=== PATIENT | female | born 1945 | race Caucasian/White ===

== ENCOUNTER 2018-04-30 20:10 | Inpatient (IN) | payer MEDICARE ==
[~2018-04-30] VITALS: Ht 165.1 cm; Wt 81.6 kg
[2018-04-30] MEDS ORDERED: KETOROLAC 30MG/ML VIAL IV STA (20:35)
[2018-04-30 21:32] LABS: CHLORIDE 93 mEq/L (98-107)
[2018-04-30 21:37] LABS: BASOPHILS % 0.6 % (0.0-2.0); EOSINOPHILS % 1.7 % (0.0-5.0); HEMATOCRIT. 35.9 % (36.0-48.0); LYMPHOCYTES % 35.7 % (20.0-50.0); MEAN CORPUSCULAR HEMOGLOBIN 30.6 pg (28.0-32.0); MEAN CORPUSCULAR VOLUME 91.7 fL (81.0-99.0); MEAN PLATELET VOLUME 9.7 fl (7.4-10.4); MONOCYTES % 9.1 % (2.0-8.0); NEUTROPHILS % 52.9 % (40.0-76.0); PLATELET 191 x1000/uL (130-400); RED BLOOD CELL COUNT 3.92 mill/uL (4.2-5.4); RED CELL DISTRIBUTION WIDTH 13.2 % (11.6-14.6)
[2018-04-30] MEDS ORDERED: MORPHINE SULFATE 2 MG/ML CPJ (NOT FOR IM USE) IV ONE (21:45)
[2018-05-01 00:24] LABS: CLARITY URINE CLEAR (CLEAR); COLOR URINE YELLOW (YELLOW); KETONES URINE TRACE (NEGATIVE); LEUKOCYTE ESTERASE URINE NEGATIVE (NEGATIVE); NITRITE URINE NEGATIVE (NEGATIVE); OCCULT BLOOD URINE NEGATIVE (NEGATIVE); PH URINE 7.5 (4.5-8.0); PROTEIN URINE NEGATIVE (NEGATIVE); SPECIFIC GRAVITY URINE 1.015 (1.005-1.030); UROBILINOGEN URINE 0.2 E.U./dL (0.2-1.0)
[2018-05-01] MEDS ORDERED: ACETAMINOPHEN 325MG TABLET PO PRN ×2 (02:15→17:30)
[2018-05-01 02:25] VITALS: BP 121/70
[2018-05-01] MEDS ORDERED: ASPIRIN 81MG TABLET PO SCH (02:28)
[2018-05-01 04:00] VITALS: BP 121/53
[2018-05-01 08:00] VITALS: BP 127/62
[2018-05-01 08:08] LABS: LDL CHOLESTEROL 66 mg/dL (5-100)
[2018-05-01 08:10] LABS: CREATINE KINASE 133 IU/L (26-192); HDL CHOLESTEROL 48 mg/dL (40-59)
[2018-05-01 08:16] LABS: CREATINE KINASE MB FRACTION < 1.0 ng/mL (0.5-3.6)
[2018-05-01] MEDS: METOPROLOL TARTRATE 50MG TABLET PO SCH ×2 (09:12→20:44)
[2018-05-01] MEDS: ENOXAPARIN 40MG/0.4ML SYR SUBCUT SCH (09:14)
[2018-05-01] MEDS: HYDROCODONE/ACETAMINOPHEN 5/325MG TABLET PO PRN ×2 (09:20→19:54)
[2018-05-01 12:00] VITALS: BP 149/66
[2018-05-01 12:24] LABS: BASOPHILS % 1.2 % (0.0-2.0); EOSINOPHILS % 1.5 % (0.0-5.0); HEMATOCRIT. 34.5 % (36.0-48.0); HEMOGLOBIN. 11.5 g/dL (12.0-16.0); LYMPHOCYTES % 37.1 % (20.0-50.0); MEAN CORPUSCULAR HEMOGLOBIN 30.5 pg (28.0-32.0); MEAN PLATELET VOLUME 10.2 fl (7.4-10.4); MONOCYTES % 8.8 % (2.0-8.0); NEUTROPHILS % 51.4 % (40.0-76.0); PLATELET 187 x1000/uL (130-400); RED BLOOD CELL COUNT 3.76 mill/uL (4.2-5.4); RED CELL DISTRIBUTION WIDTH 13.4 % (11.6-14.6)
[2018-05-01 12:35] LABS: CHLORIDE 97 mEq/L (98-107)
[2018-05-01] MEDS ORDERED: REGADENOSON 0.4 MG/5 ML IV SCH (15:45)
[2018-05-01 16:00] VITALS: BP 140/55
[2018-05-01] MEDS ORDERED: ACETAMINOPHEN 650MG SUPP PR PRN (17:30)
[2018-05-01] MEDS ORDERED: MAGNESIUM/ALUMINUM HYDROXIDE/SIMETHICONE 30ML UDC PO PRN (17:30)
[2018-05-01] MEDS ORDERED: HYDRALAZINE 20MG/ML VIAL IV PRN (17:30)
[2018-05-01] MEDS ORDERED: DOCUSATE SODIUM 100MG CAPSULE PO PRN (17:30)
[2018-05-01 20:00] VITALS: BP 140/74
[2018-05-01] MEDS ORDERED: METF10004 PO (20:56)
[2018-05-01] MEDS ORDERED: DEXTROSE 50% WATER 50ML SYRINGE IV PRN (22:45)
[2018-05-01] MEDS: HYDROCODONE/APAP 7.5/325MG 1 TAB TABLET PO PRN (22:49)
[2018-05-02] VITALS: BP 134/72
[2018-05-02] MEDS ORDERED: DEXT 5%/0.45% NACL 1000ML 1,000 ML IV SCH
[2018-05-02 04:00] VITALS: BP 140/72
[2018-05-02] MEDS: BLOOD SUGAR DIAGNOSTIC STRIP TEST SCH ×3 (05:56→17:20)
[2018-05-02] MEDS: METFORMIN HCL 500MG TABLET PO SCH ×2 (06:19→17:18)
[2018-05-02 07:14] LABS: BASOPHILS % 0.8 % (0.0-2.0); EOSINOPHILS % 3.3 % (0.0-5.0); HEMATOCRIT. 37.3 % (36.0-48.0); HEMOGLOBIN. 12.6 g/dL (12.0-16.0); LYMPHOCYTES % 46.1 % (20.0-50.0); MEAN CORPUSCULAR HEMOGLOBIN 31.1 pg (28.0-32.0); MEAN CORPUSCULAR VOLUME 92.3 fL (81.0-99.0); MEAN PLATELET VOLUME 9.4 fl (7.4-10.4); MONOCYTES % 10.8 % (2.0-8.0); PLATELET 197 x1000/uL (130-400); RED BLOOD CELL COUNT 4.05 mill/uL (4.2-5.4); RED CELL DISTRIBUTION WIDTH 13.6 % (11.6-14.6)
[2018-05-02 07:40] LABS: CHLORIDE 99 mEq/L (98-107)
[2018-05-02 08:00] VITALS: BP 142/64
[2018-05-02] MEDS ORDERED: ASPIRIN 81MG TABLET PO SCH (09:00)
[2018-05-02] MEDS: ENOXAPARIN 40MG/0.4ML SYR SUBCUT SCH (09:06)
[2018-05-02] MEDS ORDERED: REGADENOSON 0.4 MG/5 ML IV ONE (11:24)
[2018-05-02 12:00] VITALS: BP 129/78
[2018-05-02] MEDS: METOPROLOL TARTRATE 50MG TABLET PO SCH (13:27)
[2018-05-02] MEDS: HYDROCODONE/APAP 7.5/325MG 1 TAB TABLET PO PRN (13:27)
[2018-05-02] MEDS ORDERED: ASPI-1158 MT (15:30)
[2018-05-02] MEDS ORDERED: GLYB5TAB7 MT (15:33)
[2018-05-02] MEDS ORDERED: METO-539 MT (15:36)
[2018-05-02 15:51] VITALS: BP 129/78
[2018-05-02 16:00] VITALS: BP 130/71
[2018-05-02] MEDS ORDERED: GLYBURIDE 5MG TABLET PO SCH (16:45)
== END 2018-05-02 18:50 | disposition home health service (06) | DRG 206 ==
LOC: ER 20:48 → 5WST 21:53 → EDBEDREQTM 21:56 → EDBEDREQ 21:56 → ENRESERV 22:16
PROVIDERS: ADMIT Internal Medicine; ATTEND Internal Medicine
DX: M94.0 Chondrocostal junction syndrome [Tietze] (principal); K86.1 Other chronic pancreatitis; K52.9 Noninfective gastroenteritis and colitis, unspecified; R07.89 Other chest pain; E87.6 Hypokalemia; E11.9 Type 2 diabetes mellitus without complications; E78.00 Pure hypercholesterolemia, unspecified; E66.9 Obesity, unspecified; R26.9 Unspecified abnormalities of gait and mobility; M48.061 Spinal stenosis, lumbar region without neurogenic claudication; M51.36 Other intervertebral disc degeneration, lumbar region; M25.551 Pain in right hip; K57.90 Diverticulosis of intestine, part unspecified, without perforation or abscess without bleeding; M54.5 Low back pain; E78.5 Hyperlipidemia, unspecified; I11.9 Hypertensive heart disease without heart failure; Z86.73 Personal history of transient ischemic attack (TIA), and cerebral infarction without residual deficits; Z79.82 Long term (current) use of aspirin; Z79.84 Long term (current) use of oral hypoglycemic drugs; Z68.30 Body mass index [BMI] 30.0-30.9, adult
CPT/HCPCS: 36415; 71045; 72148; 74176; 78452; 80048; 80053; 80061; 81003; 82550; 82553; 82962; 83036; 83690; 83880; 84443; 84484; 85025; 93005; 93017; 93306; 93970; 96374; 96375; 97116; 97162; 99285; A9500; J1650; J1885; J2270; J2785; J3490

== ENCOUNTER 2020-07-08 11:11 | Inpatient (IN) | payer MEDICARE ==
[~2020-07-08] VITALS: Ht 162.6 cm; Wt 81.6 kg
[~2020-07-08 11:11] MED LIST: ASPI-1158 MT; GLYB5TAB7 MT; METF-416 PO; METO-539 MT
[2020-07-08 12:22] LABS: CHLORIDE 93 mEq/L (98-107)
[2020-07-08 12:25] LABS: D-DIMER 0.62 mg/L FEU (<0.50); PROTHROMBIN TIME 10.6 sec (9.6-11.0)
[2020-07-08 12:30] LABS: CREATINE KINASE 379 IU/L (26-192)
[2020-07-08 12:35] LABS: BG BASE EXCESS 0.1 mmol/L (-2.0-2.0); BG CARBOXYHEMOGLOBIN 0.8 % (0.5-1.5); BG DEOXYHEMOGLOBIN 5.2 % (0.0-5.0); BG FRACTION INSPIRED OXYGEN 21; BG HCO3 ACT 22.5 mmol/L (22.0-26.0); BG METHEMOGLOBIN 0.3 % (0.0-1.5); BG OXYGEN SATURATION 94.7 % (92.0-98.5); BG OXYHEMOGLOBIN 93.7 % (94.0-97.0); BG PCO2 29.7 mmHg (35.0-45.0); BG PH 7.498 (7.350-7.450); BG PO2 67.7 mmHg (75.0-100.0); BG SAMPLE SITE RIGHT RADIAL; BG VENT MODE ROOM AIR
[2020-07-08 12:49] LABS: BASOPHILS % 0.2 % (0.0-2.0); HEMATOCRIT. 35.2 % (36.0-48.0); HEMOGLOBIN. 12.3 g/dL (12.0-16.0); LYMPHOCYTES % 9.2 % (20.0-50.0); MEAN CORPUSCULAR HEMOGLOBIN 30.7 pg (28.0-32.0); MEAN PLATELET VOLUME 8.8 fl (7.4-10.4); MONOCYTES % 8.5 % (2.0-8.0); NEUTROPHILS % 82.1 % (40.0-76.0); PLATELET 167 x1000/uL (130-400); RED BLOOD CELL COUNT 4.01 mill/uL (4.2-5.4); RED CELL DISTRIBUTION WIDTH 13.1 % (11.6-14.6)
[2020-07-08] MEDS ORDERED: AZITHROMYCIN 500 MG in DEXT 5% WATER 250 ML IV STA (13:55)
[2020-07-08] MEDS ORDERED: CEFTRIAXONE 1 G PREMIX 50 ML IV ONE (14:00)
[2020-07-08] MEDS ORDERED: DEXAMETHASONE 10 MG/ML VIAL IV ONE (14:00)
[2020-07-08] MEDS ORDERED: CLONIDINE 0.1MG TABLET PO PRN (17:30)
[2020-07-08] MEDS ORDERED: MAGNESIUM/ALUMINUM HYDROXIDE/SIMETHICONE 30ML UDC PO PRN (17:30)
[2020-07-08] MEDS ORDERED: HYDROCODONE/ACETAMINOPHEN 5/325MG TABLET PO PRN (17:30)
[2020-07-08] MEDS ORDERED: ONDANSETRON HCL 4MG/2ML INJ IV PRN (17:30)
[2020-07-08] MEDS ORDERED: DIPHENHYDRAMINE 50MG/ML VIAL IV PRN (17:30)
[2020-07-08] MEDS ORDERED: DOCUSATE SODIUM 100MG CAPSULE PO PRN (17:30)
[2020-07-08] MEDS ORDERED: LORAZEPAM 0.5MG TABLET PO PRN (17:30)
[2020-07-08] MEDS ORDERED: NA PHOS,M-B/NA PHOS,DI-BA ENEMA 118ML PR PRN (17:30)
[2020-07-08] MEDS ORDERED: DEXTROSE 50% WATER 50ML SYRINGE IV PRN (17:30)
[2020-07-08] MEDS ORDERED: ACETAMINOPHEN 650MG SUPP PR PRN (17:30)
[2020-07-08] MEDS ORDERED: POTASSIUM CHLORIDE 20MEQ TABLET SR PO NR (17:58)
[2020-07-08 18:01] LABS: CLARITY URINE CLEAR (CLEAR); COLOR URINE YELLOW (YELLOW); KETONES URINE 1+ (NEGATIVE); LEUKOCYTE ESTERASE URINE NEGATIVE (NEGATIVE); NITRITE URINE NEGATIVE (NEGATIVE); OCCULT BLOOD URINE NEGATIVE (NEGATIVE); PH URINE 6.5 (4.5-8.0); PROTEIN URINE 2+ (NEGATIVE); SPECIFIC GRAVITY URINE 1.015 (1.005-1.030)
[2020-07-08] MEDS: INSULIN LISPRO 100 UNITS/ML SUBCUT SCH (18:20)
[2020-07-08] MEDS: FAMOTIDINE 20MG/2ML VIAL IV SCH (19:08)
[2020-07-08] MEDS: ENOXAPARIN 80MG/0.8ML SYR SUBCUT SCH (22:40)
[2020-07-08] MEDS: BLOOD SUGAR DIAGNOSTIC STRIP TEST SCH (22:40)
[2020-07-09 12:07] VITALS: BP 132/59
[2020-07-09] MEDS: BLOOD SUGAR DIAGNOSTIC STRIP TEST SCH ×4 (12:40→21:00)
[2020-07-09] MEDS: DEXAMETHASONE 10 MG/ML VIAL IV SCH (13:54)
[2020-07-09] MEDS: FAMOTIDINE 20MG/2ML VIAL IV SCH (13:55)
[2020-07-09] MEDS ORDERED: AZITHROMYCIN 500 MG in DEXT 5% WATER 250 ML IV SCH (14:00)
[2020-07-09] MEDS ORDERED: CEFTRIAXONE 1 G PREMIX 50 ML IV SCH (14:00)
[2020-07-09] MEDS: GUAIFENESIN 200MG/10ML SUGAR FREE UDC PO PRN (14:04)
[2020-07-09] MEDS: ENOXAPARIN 80MG/0.8ML SYR SUBCUT SCH ×2 (14:04→23:12)
[2020-07-09] MEDS: AZITHROMYCIN 500 MG in DEXT 5% WATER 250 ML IV SCH (15:27)
[2020-07-09] MEDS: CEFTRIAXONE 1,000 MG in DEXTROSE 5% WATER 50 ML IV SCH (16:56)
[2020-07-09 17:29] LABS: BASOPHILS % 0.2 % (0.0-2.0); EOSINOPHILS % 0.1 % (0.0-5.0); HEMATOCRIT. 32.1 % (36.0-48.0); HEMOGLOBIN. 11.4 g/dL (12.0-16.0); LYMPHOCYTES % 7.2 % (20.0-50.0); MEAN CORPUSCULAR VOLUME 87.4 fL (81.0-99.0); MEAN PLATELET VOLUME 9.1 fl (7.4-10.4); MONOCYTES % 9.8 % (2.0-8.0); NEUTROPHILS % 82.7 % (40.0-76.0); PLATELET 172 x1000/uL (130-400); RED BLOOD CELL COUNT 3.67 mill/uL (4.2-5.4); RED CELL DISTRIBUTION WIDTH 13.4 % (11.6-14.6)
[2020-07-09 17:37] LABS: CHLORIDE 96 mEq/L (98-107)
[2020-07-09 17:43] LABS: LDL CHOLESTEROL 36 mg/dL (5-100)
[2020-07-09 17:46] LABS: HDL CHOLESTEROL 51 mg/dL (40-59); T4 FREE 1.37 ng/dL (0.76-1.46)
[2020-07-09 20:00] VITALS: BP 130/76
[2020-07-09] MEDS: INSULIN LISPRO 100 UNITS/ML SUBCUT SCH (23:14)
[2020-07-10] VITALS: BP 141/53
[2020-07-10 04:00] VITALS: BP 140/74
[2020-07-10] MEDS: BLOOD SUGAR DIAGNOSTIC STRIP TEST SCH ×4 (07:48→20:33)
[2020-07-10 08:00] VITALS: BP 141/66
[2020-07-10 08:54] LABS: BG BASE EXCESS -0.5 mmol/L (-2.0-2.0); BG CARBOXYHEMOGLOBIN 0.1 % (0.5-1.5); BG DEOXYHEMOGLOBIN 11.1 % (0.0-5.0); BG HCO3 ACT 22.8 mmol/L (22.0-26.0); BG METHEMOGLOBIN 0.1 % (0.0-1.5); BG OXYGEN SATURATION 88.9 % (92.0-98.5); BG OXYHEMOGLOBIN 88.7 % (94.0-97.0); BG PCO2 33.4 mmHg (35.0-45.0); BG PH 7.453 (7.350-7.450); BG PO2 55.5 mmHg (75.0-100.0); BG SAMPLE SITE RIGHT RADIAL; BG TOTAL HEMOGLOBIN 12.6 g/dL (12.0-18.0); BG VENT MODE ROOM AIR
[2020-07-10] MEDS: ENOXAPARIN 80MG/0.8ML SYR SUBCUT SCH ×2 (10:50→20:33)
[2020-07-10] MEDS: FAMOTIDINE 20MG/2ML VIAL IV SCH (10:50)
[2020-07-10] MEDS: INSULIN LISPRO 100 UNITS/ML SUBCUT SCH ×4 (10:54→20:33)
[2020-07-10 12:00] VITALS: BP 147/66
[2020-07-10] MEDS: DEXAMETHASONE 10 MG/ML VIAL IV SCH (13:23)
[2020-07-10] MEDS: AZITHROMYCIN 500 MG in DEXT 5% WATER 250 ML IV SCH (13:23)
[2020-07-10] MEDS: CEFTRIAXONE 1,000 MG in DEXTROSE 5% WATER 50 ML IV SCH (15:59)
[2020-07-10 16:00] VITALS: BP 144/76
[2020-07-10] MEDS: ACETAMINOPHEN 325MG TABLET PO PRN (16:07)
[2020-07-10 20:00] VITALS: BP 133/68
[2020-07-10] MEDS: GUAIFENESIN 600MG ER TABLET PO SCH (20:32)
[2020-07-11] VITALS: BP 136/70
[2020-07-11 04:00] VITALS: BP_SYST 139; BP_DIAS 55; BP_DIAS 73
[2020-07-11] MEDS: BLOOD SUGAR DIAGNOSTIC STRIP TEST SCH ×4 (07:36→21:00)
[2020-07-11] MEDS: INSULIN LISPRO 100 UNITS/ML SUBCUT SCH ×4 (07:36→22:09)
[2020-07-11 07:40] LABS: HEMATOCRIT 33.5 % (36.0-48.0); HEMOGLOBIN 11.7 g/dL (12.0-16.0); MEAN CORPUSCULAR HEMOGLOBIN 30.9 pg (28.0-32.0); MEAN CORPUSCULAR VOLUME 88.5 fL (81.0-99.0); PLATELET 239 x1000/uL (130-400); RED BLOOD CELL COUNT 3.78 mill/uL (4.2-5.4); RED CELL DISTRIBUTION WIDTH 13.2 % (11.6-14.6)
[2020-07-11 07:49] LABS: CHLORIDE 99 mEq/L (98-107)
[2020-07-11 08:00] VITALS: BP 160/63
[2020-07-11] MEDS: FAMOTIDINE 20MG/2ML VIAL IV SCH (08:40)
[2020-07-11] MEDS: ENOXAPARIN 80MG/0.8ML SYR SUBCUT SCH ×2 (08:40→22:08)
[2020-07-11] MEDS: DEXAMETHASONE 10 MG/ML VIAL IV SCH (08:40)
[2020-07-11] MEDS: GUAIFENESIN 600MG ER TABLET PO SCH ×2 (08:41→22:08)
[2020-07-11] MEDS: AZITHROMYCIN 500 MG TABLET PO SCH (08:41)
[2020-07-11 11:44] VITALS: BP 153/62
[2020-07-11] MEDS: CEFTRIAXONE 1,000 MG in DEXTROSE 5% WATER 50 ML IV SCH (14:55)
[2020-07-11 16:00] VITALS: BP 149/74
[2020-07-11 20:00] VITALS: BP 159/63
[2020-07-12] VITALS: BP 144/68
[2020-07-12 04:00] VITALS: BP 142/65
[2020-07-12 07:17] LABS: BASOPHILS % 0.2 % (0.0-2.0); HEMATOCRIT. 33.1 % (36.0-48.0); HEMOGLOBIN. 11.3 g/dL (12.0-16.0); LYMPHOCYTES % 22.7 % (20.0-50.0); MEAN CORPUSCULAR HEMOGLOBIN 30.2 pg (28.0-32.0); MEAN CORPUSCULAR VOLUME 88.5 fL (81.0-99.0); MEAN PLATELET VOLUME 8.8 fl (7.4-10.4); MONOCYTES % 9.8 % (2.0-8.0); NEUTROPHILS % 67.3 % (40.0-76.0); PLATELET 273 x1000/uL (130-400); RED BLOOD CELL COUNT 3.74 mill/uL (4.2-5.4); RED CELL DISTRIBUTION WIDTH 13.2 % (11.6-14.6)
[2020-07-12] MEDS: BLOOD SUGAR DIAGNOSTIC STRIP TEST SCH ×4 (07:28→21:00)
[2020-07-12] MEDS: INSULIN LISPRO 100 UNITS/ML SUBCUT SCH ×4 (07:29→22:07)
[2020-07-12 07:53] LABS: CHLORIDE 100 mEq/L (98-107)
[2020-07-12 08:00] VITALS: BP 137/71
[2020-07-12] MEDS: AZITHROMYCIN 500 MG TABLET PO SCH (09:04)
[2020-07-12] MEDS: ENOXAPARIN 80MG/0.8ML SYR SUBCUT SCH ×2 (09:04→22:06)
[2020-07-12] MEDS: FAMOTIDINE 20MG/2ML VIAL IV SCH (09:04)
[2020-07-12] MEDS: GUAIFENESIN 600MG ER TABLET PO SCH ×2 (09:04→22:06)
[2020-07-12] MEDS: DEXAMETHASONE 10 MG/ML VIAL IV SCH (09:04)
[2020-07-12] MEDS ORDERED: POTASSIUM CHLORIDE 20MEQ TABLET SR PO NR (11:00)
[2020-07-12 12:00] VITALS: BP 157/85
[2020-07-12 13:05] LABS: BG BASE EXCESS 3.5 mmol/L (-2.0-2.0); BG CARBOXYHEMOGLOBIN 0.3 % (0.5-1.5); BG DEOXYHEMOGLOBIN 5.3 % (0.0-5.0); BG FRACTION INSPIRED OXYGEN 28; BG METHEMOGLOBIN 0.2 % (0.0-1.5); BG OXYGEN SATURATION 94.7 % (92.0-98.5); BG OXYHEMOGLOBIN 94.2 % (94.0-97.0); BG PCO2 36.8 mmHg (35.0-45.0); BG PH 7.483 (7.350-7.450); BG PO2 70.6 mmHg (75.0-100.0); BG SAMPLE SITE RIGHT RADIAL; BG TOTAL HEMOGLOBIN 11.5 g/dL (12.0-18.0); BG VENT MODE NASAL CANNULA
[2020-07-12] MEDS: CEFTRIAXONE 1,000 MG in DEXTROSE 5% WATER 50 ML IV SCH (14:11)
[2020-07-12 16:00] VITALS: BP 156/72
[2020-07-12] MEDS: AMLODIPINE 5MG TABLET PO SCH (16:39)
[2020-07-12 20:00] VITALS: BP 138/68
[2020-07-13] VITALS: BP 149/74
[2020-07-13 04:00] VITALS: BP 143/64
[2020-07-13] MEDS: BLOOD SUGAR DIAGNOSTIC STRIP TEST SCH ×4 (06:28→21:36)
[2020-07-13 06:54] LABS: BASOPHILS % 0.6 % (0.0-2.0); EOSINOPHILS % 0.1 % (0.0-5.0); HEMATOCRIT. 33.1 % (36.0-48.0); HEMOGLOBIN. 11.5 g/dL (12.0-16.0); LYMPHOCYTES % 34.7 % (20.0-50.0); MEAN CORPUSCULAR VOLUME 89.1 fL (81.0-99.0); MEAN PLATELET VOLUME 8.7 fl (7.4-10.4); MONOCYTES % 12.6 % (2.0-8.0); PLATELET 292 x1000/uL (130-400); RED BLOOD CELL COUNT 3.72 mill/uL (4.2-5.4); RED CELL DISTRIBUTION WIDTH 13.2 % (11.6-14.6)
[2020-07-13] MEDS: INSULIN LISPRO 100 UNITS/ML SUBCUT SCH ×4 (07:47→22:52)
[2020-07-13 08:00] VITALS: BP 149/69
[2020-07-13 08:31] LABS: CHLORIDE 103 mEq/L (98-107)
[2020-07-13] MEDS ORDERED: DEXAMETHASONE 10 MG/ML VIAL IV SCH (09:00)
[2020-07-13] MEDS: AMLODIPINE 5MG TABLET PO SCH (09:13)
[2020-07-13] MEDS: ENOXAPARIN 80MG/0.8ML SYR SUBCUT SCH (09:13)
[2020-07-13] MEDS: GUAIFENESIN 200MG/10ML SUGAR FREE UDC PO PRN (09:14)
[2020-07-13] MEDS: ACETAMINOPHEN 325MG TABLET PO PRN (09:14)
[2020-07-13] MEDS: FAMOTIDINE 20MG/2ML VIAL IV SCH (09:22)
[2020-07-13] MEDS: INSULIN GLARGINE UD 100 UNITS/ML SYR SUBCUT SCH (09:24)
[2020-07-13] MEDS: GUAIFENESIN 600MG ER TABLET PO SCH ×2 (09:48→21:00)
[2020-07-13 12:00] VITALS: BP 146/73
[2020-07-13 16:00] VITALS: BP 140/70
[2020-07-13] MEDS: APIXABAN 5 MG TABLET PO SCH (17:38)
[2020-07-13 20:00] VITALS: BP 149/77
[2020-07-14] VITALS: BP 142/71
[2020-07-14 04:00] VITALS: BP 142/61
[2020-07-14 08:00] VITALS: BP 166/76
[2020-07-14] MEDS: INSULIN LISPRO 100 UNITS/ML SUBCUT SCH ×4 (08:10→23:16)
[2020-07-14] MEDS: BLOOD SUGAR DIAGNOSTIC STRIP TEST SCH ×4 (08:13→21:46)
[2020-07-14] MEDS: FAMOTIDINE 20MG/2ML VIAL IV SCH (09:22)
[2020-07-14] MEDS: GUAIFENESIN 600MG ER TABLET PO SCH ×2 (09:22→23:13)
[2020-07-14] MEDS: DEXAMETHASONE 4MG/ML 1ML VIAL IV SCH (09:23)
[2020-07-14] MEDS: INSULIN GLARGINE UD 100 UNITS/ML SYR SUBCUT SCH (09:24)
[2020-07-14] MEDS: APIXABAN 5 MG TABLET PO SCH ×2 (09:24→17:37)
[2020-07-14] MEDS: AMLODIPINE 5MG TABLET PO SCH (09:25)
[2020-07-14] MEDS ORDERED: AMLODIPINE 5MG TABLET PO NR (11:30)
[2020-07-14 12:00] VITALS: BP 144/72
[2020-07-14 16:00] VITALS: BP 136/69
[2020-07-14] MEDS ORDERED: APIX5TAB MT (16:05)
[2020-07-14] MEDS ORDERED: FAMO-135 PO (16:05)
[2020-07-14] MEDS ORDERED: ALBU90AE INH (16:05)
[2020-07-14] MEDS ORDERED: DEXA2TAB PO (16:05)
[2020-07-14 20:00] VITALS: BP 135/67
[2020-07-15] VITALS: BP 132/66
[2020-07-15 04:00] VITALS: BP 140/61
[2020-07-15] MEDS: BLOOD SUGAR DIAGNOSTIC STRIP TEST SCH ×4 (06:54→21:05)
[2020-07-15] MEDS: INSULIN LISPRO 100 UNITS/ML SUBCUT SCH ×4 (07:30→21:35)
[2020-07-15 08:00] VITALS: BP 110/71
[2020-07-15] MEDS: APIXABAN 5 MG TABLET PO SCH ×2 (09:39→16:32)
[2020-07-15] MEDS: FAMOTIDINE 20MG/2ML VIAL IV SCH (09:39)
[2020-07-15] MEDS: GUAIFENESIN 600MG ER TABLET PO SCH ×2 (09:39→21:35)
[2020-07-15] MEDS: DEXAMETHASONE 4MG/ML 1ML VIAL IV SCH (09:39)
[2020-07-15] MEDS: INSULIN GLARGINE UD 100 UNITS/ML SYR SUBCUT SCH (09:40)
[2020-07-15] MEDS: AMLODIPINE 5MG TABLET PO SCH (09:40)
[2020-07-15 12:00] VITALS: BP 143/71
[2020-07-15 16:00] VITALS: BP 143/70
[2020-07-15 20:00] VITALS: BP 132/74
[2020-07-16] VITALS: BP 126/67
[2020-07-16 04:00] VITALS: BP 143/66
[2020-07-16] MEDS: BLOOD SUGAR DIAGNOSTIC STRIP TEST SCH ×4 (07:04→21:00)
[2020-07-16 07:54] VITALS: BP 135/70
[2020-07-16] MEDS: DEXAMETHASONE 4MG/ML 1ML VIAL IV SCH (08:13)
[2020-07-16] MEDS: AMLODIPINE 5MG TABLET PO SCH (08:13)
[2020-07-16] MEDS: GUAIFENESIN 600MG ER TABLET PO SCH ×2 (08:13→21:40)
[2020-07-16] MEDS: APIXABAN 5 MG TABLET PO SCH ×2 (08:13→17:39)
[2020-07-16] MEDS: FAMOTIDINE 20MG/2ML VIAL IV SCH (08:13)
[2020-07-16] MEDS: INSULIN LISPRO 100 UNITS/ML SUBCUT SCH ×4 (08:14→21:41)
[2020-07-16] MEDS: INSULIN GLARGINE UD 100 UNITS/ML SYR SUBCUT SCH (10:11)
[2020-07-16 12:00] VITALS: BP 127/57
[2020-07-16 16:00] VITALS: BP 124/68
[2020-07-16 20:00] VITALS: BP 129/63
[2020-07-17] VITALS: BP 117/59
[2020-07-17 04:00] VITALS: BP 138/61
[2020-07-17] MEDS: INSULIN LISPRO 100 UNITS/ML SUBCUT SCH ×4 (05:38→21:49)
[2020-07-17] MEDS: BLOOD SUGAR DIAGNOSTIC STRIP TEST SCH ×4 (05:38→21:48)
[2020-07-17 08:00] VITALS: BP 137/61
[2020-07-17] MEDS: AMLODIPINE 5MG TABLET PO SCH (09:11)
[2020-07-17] MEDS: GUAIFENESIN 200MG/10ML SUGAR FREE UDC PO PRN (09:11)
[2020-07-17] MEDS: GUAIFENESIN 600MG ER TABLET PO SCH ×2 (09:12→21:48)
[2020-07-17] MEDS: FAMOTIDINE 20MG/2ML VIAL IV SCH (09:12)
[2020-07-17] MEDS: APIXABAN 5 MG TABLET PO SCH ×2 (09:12→18:39)
[2020-07-17] MEDS: DEXAMETHASONE 4MG/ML 1ML VIAL IV SCH (09:15)
[2020-07-17] MEDS: INSULIN GLARGINE UD 100 UNITS/ML SYR SUBCUT SCH ×3 (10:01→21:49)
[2020-07-17 12:00] VITALS: BP 129/75
[2020-07-17 20:00] VITALS: BP 125/62
[2020-07-18] VITALS: BP 131/72
[2020-07-18 04:00] VITALS: BP 142/67
[2020-07-18] MEDS: INSULIN LISPRO 100 UNITS/ML SUBCUT SCH ×2 (05:44→12:36)
[2020-07-18] MEDS: BLOOD SUGAR DIAGNOSTIC STRIP TEST SCH ×2 (05:44→12:24)
[2020-07-18 08:00] VITALS: BP 116/59
[2020-07-18] MEDS: GUAIFENESIN 600MG ER TABLET PO SCH (09:42)
[2020-07-18] MEDS: FAMOTIDINE 20MG/2ML VIAL IV SCH (09:42)
[2020-07-18] MEDS: AMLODIPINE 5MG TABLET PO SCH (09:42)
[2020-07-18] MEDS: APIXABAN 5 MG TABLET PO SCH (09:42)
[2020-07-18] MEDS: DEXAMETHASONE 4MG/ML 1ML VIAL IV SCH (09:43)
[2020-07-18] MEDS: INSULIN GLARGINE UD 100 UNITS/ML SYR SUBCUT SCH (09:43)
[2020-07-18 12:00] VITALS: BP 128/62
[2020-07-18 15:02] VITALS: BP 128/62
[2020-07-18 16:00] VITALS: BP 114/67
== END 2020-07-18 15:55 | disposition home or self-care (01) | DRG 177 ==
LOC: ER 11:35 → 7WST 16:15 → EDBEDREQ 16:24 → EDBEDREQTM 16:24 → ENRESERV 07-09 07:37
PROVIDERS: ADMIT Internal Medicine; ATTEND Internal Medicine
DX: U07.1 COVID-19 (principal); J12.89 Other viral pneumonia; E87.1 Hypo-osmolality and hyponatremia; E66.9 Obesity, unspecified; E78.5 Hyperlipidemia, unspecified; E87.6 Hypokalemia; I10 Essential (primary) hypertension; E11.65 Type 2 diabetes mellitus with hyperglycemia; E78.00 Pure hypercholesterolemia, unspecified; R79.89 Other specified abnormal findings of blood chemistry; E88.09 Other disorders of plasma-protein metabolism, not elsewhere classified; R06.03 Acute respiratory distress; Z86.73 Personal history of transient ischemic attack (TIA), and cerebral infarction without residual deficits; Z79.84 Long term (current) use of oral hypoglycemic drugs; Z68.30 Body mass index [BMI] 30.0-30.9, adult; Z79.899 Other long term (current) drug therapy; Z79.82 Long term (current) use of aspirin
CPT/HCPCS: 36415; 36600; 71045; 80048; 80053; 80061; 81003; 82375; 82550; 82728; 82805; 82962; 83036; 83605; 83615; 83880; 84145; 84439; 84443; 84484; 85025; 85027; 85379; 85384; 86140; 86850; 86900; 87635; 87804; 93005; 99291; J0456; J0696; J1100; J1650; J1815; J3490; J7060

== ENCOUNTER 2022-01-27 22:38 | Emergency (ER) | payer MEDICARE ==
[~2022-01-27] VITALS: Ht 157.5 cm; Wt 81.0 kg
[~2022-01-27 22:38] MED LIST changes: -ASPI-1158 MT; +ASPI-1406 MT
[2022-01-27] MEDS ORDERED: BACITRACIN ZINC OINT UDPKT TOP ONE (23:00)
[2022-01-27] MEDS ORDERED: ACETAMINOPHEN WITH CODEINE 300/30MG TABLET PO ONE (23:00)
[2022-01-28] MEDS ORDERED: BACITRACIN ZINC OINT UDPKT TOP NR (04:30)
[2022-01-28] MEDS ORDERED: ACETAMINOPHEN WITH CODEINE 300/30MG TABLET PO NR (04:30)
[2022-01-28] MEDS ORDERED: ONDANSETRON 4MG ODT PO ONE (06:30)
[2022-01-28 06:55] VITALS: BP 124/65
== END 2022-01-28 06:57 | disposition home or self-care (01) ==
LOC: ER 22:38
DX: S60.512A Abrasion of left hand, initial encounter (principal); S60.511A Abrasion of right hand, initial encounter; W18.39XA Other fall on same level, initial encounter; Y93.89 Activity, other specified; Y92.89 Other specified places as the place of occurrence of the external cause; Y99.8 Other external cause status; E11.9 Type 2 diabetes mellitus without complications; E78.00 Pure hypercholesterolemia, unspecified; Z86.73 Personal history of transient ischemic attack (TIA), and cerebral infarction without residual deficits
CPT/HCPCS: 70450; 73130; 99284; Q0162

== ENCOUNTER 2022-07-03 01:49 | Emergency (ER) | payer MEDICARE ==
[~2022-07-03] VITALS: Ht 152.4 cm; Wt 70.0 kg
[2022-07-03 06:57] LABS: HEMATOCRIT. 38.1 % (36.0-48.0); HEMOGLOBIN. 13.2 g/dL (12.0-16.0); MEAN CORPUSCULAR HEMOGLOBIN 31.2 pg (28.0-32.0); MEAN PLATELET VOLUME 8.8 fl (7.4-10.4); PLATELET 205 x1000/uL (130-400); RED BLOOD CELL COUNT 4.24 mill/uL (4.2-5.4); RED CELL DISTRIBUTION WIDTH 13.3 % (11.6-14.6)
[2022-07-03 06:59] LABS: CHLORIDE 89 mEq/L (98-107)
[2022-07-03 07:22] LABS: CLARITY URINE CLEAR (CLEAR); COLOR URINE YELLOW (YELLOW); KETONES URINE NEGATIVE (NEGATIVE); LEUKOCYTE ESTERASE URINE 1+ (NEGATIVE); NITRITE URINE NEGATIVE (NEGATIVE); OCCULT BLOOD URINE NEGATIVE (NEGATIVE); PROTEIN URINE NEGATIVE (NEGATIVE); SPECIFIC GRAVITY URINE 1.006 (1.005-1.030); UROBILINOGEN URINE 0.2 E.U./dL (0.2-1.0)
[2022-07-03 07:54] LABS: PLATELET ESTIMATE NORMAL
[2022-07-03] MEDS ORDERED: SODIUM CHLORIDE 0.9% 1,000 ML IV ONE (11:30)
[2022-07-03] MEDS ORDERED: CEFTRIAXONE 1 G PREMIX 50 ML IV ONE (11:45)
[2022-07-03 12:00] VITALS: BP 145/78
[2022-07-03] MEDS ORDERED: CEPH500T MT ×2 (12:39→13:02)
== END 2022-07-03 13:18 | disposition home or self-care (01) ==
LOC: ER 01:54
DX: N39.0 Urinary tract infection, site not specified (principal); E87.1 Hypo-osmolality and hyponatremia; E11.9 Type 2 diabetes mellitus without complications; I10 Essential (primary) hypertension; Z86.73 Personal history of transient ischemic attack (TIA), and cerebral infarction without residual deficits; Z79.899 Other long term (current) drug therapy
CPT/HCPCS: 36415; 71045; 80053; 81003; 85025; 99285; J0696

== ENCOUNTER 2023-03-16 12:08 | Emergency (ER) | payer MEDICARE ==
[~2023-03-16] VITALS: Ht 165.1 cm; Wt 81.0 kg
[~2023-03-16 12:08] MED LIST changes: +CEPH500T MT
[2023-03-16 12:20] VITALS: O2SAT 98
[2023-03-16 13:00] LABS: CLARITY URINE CLEAR (CLEAR); COLOR URINE YELLOW (YELLOW); GLUCOSE URINE TRACE (NEGATIVE); KETONES URINE NEGATIVE (NEGATIVE); LEUKOCYTE ESTERASE URINE TRACE (NEGATIVE); NITRITE URINE NEGATIVE (NEGATIVE); OCCULT BLOOD URINE NEGATIVE (NEGATIVE); PH URINE 7.5 (4.5-8.0); PROTEIN URINE NEGATIVE (NEGATIVE); SPECIFIC GRAVITY URINE 1.007 (1.005-1.030); UROBILINOGEN URINE 0.2 E.U./dL (0.2-1.0)
[2023-03-16 13:03] LABS: WBC URINE 0-2 /hpf (0-2); YEAST URINE NONE SEEN
[2023-03-16 13:11] LABS: BASOPHILS % 0.3 % (0.0-2.0); EOSINOPHILS % 0.4 % (0.0-5.0); HEMATOCRIT. 37.3 % (36.0-48.0); HEMOGLOBIN. 12.8 g/dL (12.0-16.0); LYMPHOCYTES % 8.9 % (20.0-50.0); MEAN CORPUSCULAR HEMOGLOBIN 31.5 pg (28.0-32.0); MEAN CORPUSCULAR HGB CONC 34.3 g/dL (31.0-37.0); MEAN CORPUSCULAR VOLUME 91.6 fL (81.0-99.0); MEAN PLATELET VOLUME 8.5 fl (7.4-10.4); MONOCYTES % 6.2 % (2.0-8.0); NEUTROPHILS % 84.2 % (40.0-76.0); PLATELET 251 x1000/uL (130-400); RED BLOOD CELL COUNT 4.07 mill/uL (4.2-5.4); WHITE BLOOD COUNT 10.1 x1000/uL (4.5-11.0)
[2023-03-16 13:18] LABS: CHLORIDE 95 mEq/L (98-107); INDEX HEMOLYSI 1 (1-3); INDEX ICTERIC 1 (1-4); INDEX LIPEMIC 1 (1-3); POTASSIUM 3.6 mEq/L (3.5-5.1); SODIUM 130 mEq/L (136-145)
[2023-03-16 13:26] LABS: BACTERIA URINE RARE; RBC URINE 0-2 /hpf (0-2); SQUAMOUS EPITHELIAL CELL URINE RARE /lpf (RARE/1+)
[2023-03-16 13:26] LABS: ALANINE AMINOTRANSFERASE 26 IU/L (13-61); ALBUMIN 4.1 g/dL (3.4-5.0); ASPARTATE AMINOTRANSFERASE 19 IU/L (15-37); BILIRUBIN TOTAL 0.5 mg/dL (0.1-1.0); CALCIUM 9.1 mg/dL (8.5-10.1); CARBON DIOXIDE 29 mEq/L (21-32); CREATININE 0.6 mg/dL (0.6-1.3); GLUCOSE 127 mg/dL (70-105); PROTEIN TOTAL 8.4 g/dL (6.0-8.3); UREA NITROGEN BLOOD 14 mg/dL (7-21)
[2023-03-16] MEDS ORDERED: ONDANSETRON HCL 4MG/2ML INJ IV STA (14:34)
[2023-03-16] MEDS ORDERED: DICYCLOMINE 10 MG/5 ML ORAL SYR PO STA (14:34)
[2023-03-16] MEDS ORDERED: KETOROLAC 30MG/ML VIAL IV STA (14:34)
[2023-03-16] MEDS ORDERED: MAGNESIUM/ALUMINUM HYDROXIDE/SIMETHICONE 30ML UDC PO STA (14:34)
[2023-03-16] MEDS ORDERED: IOHEXOL-300 100 ML BOTTLE ONE (17:40)
[2023-03-16 18:44] VITALS: TEMP 98.4
[2023-03-16 20:54] VITALS: BP 150/64; PULSE 81; RESP 16
== END 2023-03-16 20:58 | disposition home or self-care (01) ==
LOC: ER 12:08
DX: R10.13 Epigastric pain (principal); E11.9 Type 2 diabetes mellitus without complications; I10 Essential (primary) hypertension; Z86.73 Personal history of transient ischemic attack (TIA), and cerebral infarction without residual deficits; K65.4 Sclerosing mesenteritis
CPT/HCPCS: 99285; 74177; 96374; 96375; 80053; 81003; 83690; 85025; 36415; Q9967; J1885; J2405